=== PATIENT | male | born 1960 | race Caucasian/White ===

== ENCOUNTER 2024-12-03 18:28 | Observation (INO) | payer BC ==
[~2024-12-03] VITALS: Ht 175.3 cm; Wt 143.0 kg
[2024-12-03] MEDS ORDERED: ELIQUIS5 MG PO (18:45)
[2024-12-03] MEDS ORDERED: DILTIAZEM ER120 MG PO (18:45)
[2024-12-03] MEDS ORDERED: ALBUTEROL/IPRATROPIUM 3 ML NEB INH PRN ×2 (18:45→21:00)
[2024-12-03] MEDS ORDERED: LIPITOR40 MG PO (18:46)
[2024-12-03 18:49] LABS: BASOPHILS 0.3 % (0.2-1.2); EOSINOPHILS 0.6 % (0.8-7.0); LYMPHOCYTES 9.7 % (21.8-53.1); MCH 30.7 PG (25.7-32.2); MCHC 35.6 g/dL (32.3-36.5); MCV 86.4 fL (79.0-92.2); MONOCYTES 12.3 % (5.3-12.2); NEUTROPHILS 76.9 % (34.0-67.9); RBC 5.01 M/uL (4.63-6.08)
[2024-12-03 19:17] LABS: ALT (SGPT) 51.0 U/L (14-59); AST (SGOT) 35.0 U/L (15-37); GLOMERULAR FILTRATION RATE,EST 98.0 mL/min (>60); PROTEIN, TOTAL 8.0 g/dL (6.4-8.2); UREA NITROGEN 13.0 mg/dL (7-18)
[2024-12-03 19:19] LABS: CORONAVIRUS COVID-19 AG POSITIVE (NEGATIVE)
[2024-12-03] MEDS ORDERED: ALBUTEROL SULFATE 8 GM HOME.PACK INH ONE (19:30)
[2024-12-03] MEDS ORDERED: ACETAMINOPHEN 500 MG TAB PO ONE (19:45)
--- NOTE | 2024-12-03 19:53 | EKG ---
[facility] [address] [facility] [place], [place] [address] Signed Normal sinus rhythm Right bundle branch block Inferior infarct , age undetermined Abnormal ECG No previous ECGs available Confirmed by Dilia Orellana DO ([id number]) on 12/03/2024 7:53:23 PM Electronically Signed By: DILIA ORELLANA DO 12/03/241952 PATIENT NAME: ANGIE CUETO Electrocardiogram DATE OF : 62 PHYSICIAN: DILIA ORELLANA DO REPORT #: [id number] REPORT IS CONFIDENTIAL AND NOT TO BE RELEASED WITHOUT AUTHORIZATION
[2024-12-03] MEDS ORDERED: ACETAMINOPHEN 325 MG TAB PO PRN (20:30)
[2024-12-03] MEDS ORDERED: NIRMATRELVIR PO SCH (21:00)
[2024-12-03] MEDS ORDERED: RITONAVIR PO SCH (21:00)
[2024-12-03] MEDS ORDERED: [UNRECOGNIZED DRUG - OTHER] PO SCH (21:00)
[2024-12-03 21:11] VITALS: BP 165/73; BP 1655/73
--- NOTE | 2024-12-03 22:23 | NUR ---
PT IN FROM ED VIA STRETCHER, REPORT RECEIVED FROM MANUEL RN AND LONNY RN. VITAL SIGNS TAKEN AND RECORDED. ASSESSMENT DONE. MEDICATION GIVEN ORDERED. PT DENIES FURTHER NEEDS. CALL LIGHT IN REACH.
--- NOTE | 2024-12-03 23:03 | NUR ---
CALL LIGHT ANSWERED. PT NEEDED TO USE BATHROOM. CARPET JACK SBA TO BATHROOM. PT VOIDED AND HAD BM. PT ASSISTED BACK TO BED. PT STATES NO FURTHER NEEDS AT THIS TIME. CALL LIGHT WITHIN REACH.
--- NOTE | 2024-12-03 23:44 | NUR ---
PT RESTING IN BED. RESPIRATIONS EVEN AND UNLABORED. FIXED TELE LEADS. DENIES NEEDS AT THE MOMENT. CALL LIGHT IN REACH.
[2024-12-04] VITALS (9 sets, daily range): BP systolic 117–150; BP diastolic 69–97
--- NOTE | 2024-12-04 01:18 | NUR ---
PT AMBULATED TO THE BATHROOM SBA, VITAL SIGNS TAKEN AND RECORDED, INTAKE AND OUTPUT RECORDED. DENIES FURTHER NEEDS. CALL LIGHT IN REACH.
--- NOTE | 2024-12-04 03:43 | NUR ---
PT RESTING IN BED, RESPIRATIONS EVEN AND UNLABORED. NO NEEDS NOTED AT THIS TIME. CALL LIGHT IN REACH.
--- NOTE | 2024-12-04 05:06 | NUR ---
CALL LIGHT ANSWERED. PT NEEDED TO USE BATHROOM. PT SBA TO BATHROOM. PT VOIDED AND ASSISTED BACK TO BED. VITALS AND I&O OBTAINED. PT STATES NO FURTHER NEEDS AT THIS TIME. CALL LIGHT WITHIN REACH.
--- NOTE | 2024-12-04 05:17 | NUR ---
PT IN BED, AWAKE, RESPIRATION EVEN AND UNLABORED. C/O 07/01 HEADACHE. TYLENOL GIVEN ORDERED. DENIES OTHER NEEDS. CALL LIGHT IN REACH.
[2024-12-04 05:55] LABS: BASOPHILS 0.4 % (0.2-1.2); EOSINOPHILS 0.9 % (0.8-7.0); LYMPHOCYTES 17.3 % (21.8-53.1); MCH 30.7 PG (25.7-32.2); MCHC 35.5 g/dL (32.3-36.5); MCV 86.5 fL (79.0-92.2); MONOCYTES 16.2 % (5.3-12.2); NEUTROPHILS 65.0 % (34.0-67.9); RBC 4.89 M/uL (4.63-6.08)
[2024-12-04 06:14] LABS: ALT (SGPT) 51.0 U/L (14-59); AST (SGOT) 34.0 U/L (15-37); GLOMERULAR FILTRATION RATE,EST 99.0 mL/min (>60); PROTEIN, TOTAL 7.7 g/dL (6.4-8.2); UREA NITROGEN 11.0 mg/dL (7-18)
--- NOTE | 2024-12-04 07:20 | NUR ---
REPORT RECIEVED FROM TYLER BERKOWITZ AND TYLER RAMÍREZ. PATIENT SITTING UP AT EDGE OF BED ON HIS PHONE. PATIENT REQUESTING HYGEINE SUPPLIES AND SHOWER. LET PATIENT KNOW STAFF WILL BE IN AND PROVIDE REQUESTED ITEM. PATIENT DENIES ANY PAIN AT THIS TIME AND IS WITHOUT FURTHER NEEDS. CALL LIGHT AND PERSONAL BELONGINGS ARE WITHIN REACH.
--- NOTE | 2024-12-04 08:10 | NUR ---
PATIENT MEDICATED PER EMAR. PATIENT SITTING UP AT EDGE OF BED EATING BREAKFAST, FRESH ICE WATER PROVIDED. RT AT BEDSIDE. PATIENT WITHOUT FURTHER NEEDS AT THIS TIME. CALL LIGHT AND PERSONAL BELONGINGS ARE WITHIN REACH.
[2024-12-04] MEDS ORDERED: APIXABAN 2.5 MG TAB PO SCH (09:19)
--- NOTE | 2024-12-04 11:22 | NUR ---
PATIENT MEDICATED PER EMAR. PATIENT SITTING UP IN HIS BED WATCHING TV. PATIENT STATES "I'M FINER THAT FROGS HAIR" WHEN ASKED BY THIS RN HOW PATIENT IS FEELING. PATIENT DENIES PAIN. FRESH WATER PROVIDED. VITALS SIGNS TAKEN AND ARE STABLE. PATIENT WITHOUT FURTHER NEEDS AT THIS TIME. CALL LIGHT AND PERSONAL BELONGINGS ARE WITHIN REACH.
[2024-12-04] MEDS ORDERED: PHARMACY RENAL DOSE ADJUSTMENT 1 DOSE MISC PO SCH (12:00)
[2024-12-04] MEDS ORDERED: GUAIFENESIN/DEXTROMETHORPHAN 5 ML SYRUP PO PRN (13:15)
--- NOTE | 2024-12-04 13:45 | NUR ---
PATIENT RESTING IN BED WITH HIS PARTNER AT BEDSIDE. PATIENT IS WITHOUT ANY NEEDS AT THIS TIME. CALL LIGHT AND PERSONAL BELONGINGS ARE WITHIN REACH.
--- NOTE | 2024-12-04 14:10 | NUR ---
PATIENT MEDICATED PER EMAR. PATIENT RESTING IN BED WITH HIS AT BEDSIDE. PATIENT IS WITHOUT ANY NEEDS AT THIS TIME. CALL LIGHT AND PERSONAL BELONGINGS ARE WITHIN REACH. FRESH ICE WATER PROVIDED.
--- NOTE | 2024-12-04 16:22 | NUR ---
PATIENT RESTING IN BED ON HIS PHONE AND IS WITHOUT ANY NEEDS AT THIS TIME. CALL LIGHT AND PERSONAL BELONGINGS ARE WITHIN REACH.
--- NOTE | 2024-12-04 18:45 | NUR ---
PATIENT MEDICATED PER EMAR. PATIENT REQUESTING TO GET UP TO USE BATHROOM. PATIENT UP TO BATHROOM AND STATES HE WILL CALL WHEN HE IS FINSIHED TO GET NEW STICKERS PLACED FOR TELE LEADS. CALL LIGHT WITHIN REACH.
--- NOTE | 2024-12-04 19:35 | NUR ---
REPORT RECEIVED FROM TYLER ROTH. PATIENT SITTING UPRIGHT IN BED, WATCHING TV. RESPIRATIONS EVEN AND UNLABORED. HEAT PACK PROVIDED PER REQUEST FOR DISCOMFORT IN HIP. HE DENIES ANY OTHER NEEDS, CPOX IN PLACE, PATIENT ON ROOM AIR. CALL LIGHT IN REACH
--- NOTE | 2024-12-04 21:22 | NUR ---
VS OBTAINED AND RECORDED. INTAKE AND OUTPUT DOCUMENTED. PATIENT AWAKE AND ALERT AND RESPIRATIONS ARE EVEN AND UNLABORED. HE DENIES SOB WHEN HE IS UP. TELE MONITOR ADJUSTED. SCHEDULED MEDICATIONS GIVEN PER ORDER. PATIENT DENIES ANY OTHER NEEDS, CALL LIGHT IN REACH.
--- NOTE | 2024-12-04 22:51 | NUR ---
ROUNDED ON PATIENT, RESPIRATIONS EVEN AND UNLABORED. CPOX IN PLACE. NO NEEDS IDENTIFIED, CALL LIGHT IN REACH
--- NOTE | 2024-12-04 23:31 | NUR ---
Adjusted temperature of room for Pt. Assisted back to bed. Call light left in reach. No other needs expressed by Pt.
--- NOTE | 2024-12-05 01:36 | NUR ---
PATIENT RESTING WITH EYES CLOSED ON HIS RIGHT SIDE, RESPIRATIONS EVEN AND UNLABORED. CPOX AT BEDSIDE. NO NEEDS IDENTIFIED, CALL LIGHT IN REACH
[2024-12-05 02:20] VITALS: BP 146/76
[2024-12-05 02:23] VITALS: BP 146/76
--- NOTE | 2024-12-05 02:29 | NUR ---
PATIENT WOKE TO RN ENTERING ROOM. VS OBTAINED AND RECORDED, OUTPUT DOCUMENTED. NO FURTHER NEEDS IDENTIFIED, RESPIRATIONS EVEN AND UNLABORED. CALL LIGHT IN REACH
--- NOTE | 2024-12-05 03:52 | NUR ---
ROUNDED ON PATIENT, RESPIRATIONS EVEN AND UNLABORED. NO NEEDS IDENTIFIED, CPOX AT BEDSIDE. CALL LIGHT IN REACH
--- NOTE | 2024-12-05 04:34 | NUR ---
PATIENT REQUESTED TYLENOL, IN ROOM TO ASSESS PATIENT. PATIENT REPORTED THAT HE WAS FEELING RESTLESS. WARM PACK PROVIDED FOR PATIENT COMFORT. HE DENIES ANY OTHER NEEDS. CALL LIGHT IN REACH
--- NOTE | 2024-12-05 06:27 | NUR ---
ROUNDED ON PATIENT, VS OBTAINED, RESPIRATIONS EVEN AND UNLABORED. STATES HE IS FEELING MUCH BETTER. CPOX AT BEDSIDE, REMAINS ON ROOM AIR. DENIES ANY NEEDS, CALL LIGHT IN REACH
[2024-12-05 06:30] VITALS: BP 121/63
[2024-12-05 06:49] VITALS: BP 121/63
--- NOTE | 2024-12-05 07:34 | NUR ---
PT RESTING EYES CLOSED AT TIME OF SHIFT REPORT, LEFT UNDISTURBED. FRESH H20, CALL LIGHT AND NEEDED ITEMS IN REACH.
--- NOTE | 2024-12-05 08:19 | NUR ---
blood sugar was taken this morning - 151 @ 0820 -0 not in the emar
--- NOTE | 2024-12-05 10:00 | NUR ---
PT STATES DR ORELLANA WAS IN TO SEE HIM AND HE WILL DC LATER TODAY. PT DENIES SOB OR DISCOMFORTS AGREES HE IS READY TO DC. UP IN THE ROOM INDEPENDANTLY.
--- NOTE | 2024-12-05 10:59 | NUR ---
PT TO SHOWER DENIES NEED OF ASSIST. COMPLETES SELF CARE DENIES SOB OR DIFFICULTY.
[2024-12-05 11:13] VITALS: BP 141/89
--- NOTE | 2024-12-05 11:17 | NUR ---
pt got dressed following his shower. pt being released. pt has a visitor that brought clothes. room cleaned up and garbage removed. call light in reach of pt. pt reports needing nothing more at this time.
--- NOTE | 2024-12-05 11:19 | NUR ---
Medications reconciled. patient started on Paxlovid- hold atorvastatin while taking. Eliquis dose should be cut in half to 2.5mg BID. Continue diltiazem at regular dose as will be monitored
--- NOTE | 2024-12-05 11:20 | NUR ---
PT TOOK SHOWER. [employer] LEADER CLEANED THE ROOM FOLLOWING THE SHOWER.
== END 2024-12-05 12:14 | disposition home or self-care (01) ==
LOC: ED 18:28 → MS 18:30
PROVIDERS: Emergency Medicine; Internal Medicine; ADMIT Student in an Organized Health Care Education/Training Program; ATTEND Student in an Organized Health Care Education/Training Program
DX: U07.1 COVID-19 (principal); I48.91 Unspecified atrial fibrillation; Z79.01 Long term (current) use of anticoagulants; Z79.899 Other long term (current) drug therapy
CPT/HCPCS: 36415; 71045; 80053; 83036; 83735; 83880; 84484; 85025; 87502; 93005; 93010; 94640; 94667; 94762; 99285-25; A9270; G0378; U0002